=== PATIENT | male | born 1935 | race Caucasian/White ===

== ENCOUNTER 2016-07-14 13:08 | Observation (INO) | payer MEDICARE ==
[~2016-07-14] VITALS: Ht 165.1 cm; Wt 63.0 kg
[~2016-07-14 13:08] MED LIST: ASPI81TA2 PO; LOVA40TA PO; PRI20 PO
[2016-07-14 13:15] VITALS: BP 181/87; PULSE 65; RESP 16; O2SAT 100
--- NOTE | 2016-07-14 13:34 | ED.REPORT ---
HPI-Chest Pain 40 and Over Date of Service Jul 14, 2016 ED Provider: Jose Raul Temple DO 81 year old male with a history of PR, GERD, and CABG presents to the ER accompanied by his complaining of chest pain onset this morning. He also reports persistent dizziness, with an episode of near syncope yesterday, and shortness of breath. Patient denies fever, cough, lower extremity swelling, diarrhea, nausea, and vomiting. He is a poor historian, and his frequently interrupts with information that is not clinically relevant. Nursing Notes Stated Complaint: DIZZY Chief Complaint: Chest Pain Nursing Notes Reviewed: Yes Allergies: Coded Allergies: No Known Allergies (Verified , 07/14/16) Scheduled Aspirin-Expunged Drug, Do Not Renew! (Aspirin-Expunged Drug, Do Not Renew!) 81 Mg Tablet 81 MG PO DAILY Lovastatin-Expunged Drug, Do Not Renew! (Lovastatin-Expunged Drug, Do Not Renew! ) 40 Mg Tablet 40 MG PO DAILY Omeprazole-Expunged Drug, Do Not Renew! (Omeprazole-Expunged Drug, Do Not Renew! ) 20 Mg Capcr 20 MG PO BID General Time Seen by MD: 13:33 Chief Complaint Chest pain Hx Obtained From: Patient, Spouse Arrived By: Walk-in Sudden in Onset?: No Onset Occurred: 5 - 8 hours ago Symptom Duration: Since onset Location: : Substernal Quality: Painful Severity: Current: Moderate Severity: Maximum: Moderate Associated with: Reports: Dizziness, Lightheaded, Shortness of Breath, Denies: Cough, non-productive, Cough, productive, Fever, Nausea, Vomiting Pertinent Negative: Pt denies other symptoms Context Related History: Reports: GERD, Myocardial infarction Past Medical History Past Medical History PR Reports: GERD Past Surgical History Carotid endarterectomy CABG Smoking History Unknown if Ever Smoker Social History Alcohol Use: "Social" (occasional) Other Social History: Good social support, Review of Systems Constitutional: Denies: Chills, Fever Respiratory: Reports: Shortness of breath, Denies: Non-productive cough Cardiovascular: Reports: Chest pain GI: Denies: Abdominal pain, Diarrhea, Nausea, Vomiting Musculoskeletal: Denies: Extremity pain, Extremity swelling, Neck pain Complete sys rev & neg: except as marked. Physical Exam Initial Vital Signs Vital Signs (First) Date Time Temp Pulse Resp B/P Pulse Ox O2 Delivery O2 Flow Rate FiO2 07/14/16 13:15 65 16 181/87 100 Room Air 07/14/16 14:26 36.2 Initial VS: Reviewed Head / Eyes: Atraumatic, Normocephalic Neck: Supple, Non-tender, Full range of motion Extremities: Vascular intact, Neuro intact, No swelling, No tenderness Skin: Warm, Dry, No cyanosis Neurologic: Alert, Oriented, Nonfocal General/Constitutional: Awake, Alert, Well developed, Well nourished Appearance / Presentation: Positive: Frail Respiratory / Chest: Breath sounds NL, Breath sounds = bilat, No respiratory distress, No rales, No rhonchi, No wheezing Midline sternotomy scar. Cardiovascular: Heart rate NL, Regular rhythm, Heart sounds NL, No murmurs, Peripheral circulation NL, Pulses = bilaterally, No gross BP differential 2+ PT pulses Abdomen: Soft, Non-tender, No guarding, No rebound, No distention Interpretation & Diagnostics Lab Results Interpretation Result Diagram: 07/14/16 1410 Test 07/14/16 14:10 White Blood Count 5.9th/mm3 (3.8-10.1) Red Blood Count 4.93mil/mm3 (4.40-5.80) Hemoglobin 14.8g/dL (13.8-17.2) Hematocrit 43.6% (41.0-50.0) Mean Corpuscular Volume 88.4fL (81-100) Mean Corpuscular Hemoglobin 30.0pg (27.0-35.0) Mean Corpuscular Hemoglobin Concent 33.9% (32.0-37.0) Red Cell Distribution Width 13.0% (12.3-15.4) Platelet Count 210bil/L (150-400) Neutrophils (%) (Auto) 48.2% (40-74) Lymphocytes (%) (Auto) 40.5% (14-46) Monocytes (%) (Auto) 8.5% (4-12) Eosinophils (%) (Auto) 1.9% (0-5) Basophils (%) (Auto) 0.7% (0-3) D-Dimer < 0.5mg/L (<0.50) ECG Interpretation ECG Interpretation: Sinus rhythm at a rate of 64 with occasional PAC's Time: 13:33 Interpreted by: ED physician X-Ray Chest Interpretation Chest Xray Interpretation: IMPRESSION: 1. Chronic interstitial changes. 2. 9 mm right basilar nodular opacity, from nonspecific and not seen on prior exam dated 03/08/13. Recommend interval followup as below. Fleischner Society criteria for SOLID lung nodule followup. Nodule size (mm)Low-risk patientHigh-risk patient<6 (single or multiple)No routine followup.Optional CT at 12 months. 6-8 (single or multiple)CT at 6-12 months, then optional CT at 18-24 mo.CT at 6-12 months, then CT at 18-24 months. >8 (single)CT, PET-CT, or biopsy at 3 months. Same as for low-risk pts. >8 (multiple)CT at 3-6 months, then optional CT at 18-24 mo.CT at 3-6 months, then CT at 18-24 months. Recommendations do not apply to lung cancer screening, patients with immunosuppression, or patients with known primary cancer. Dictated by: Vandana Hernandez M.D. on 07/14/2016 at 14:18 Approved by: Vandana Hernandez M.D. on 07/14/2016 at 14:23 View: Portable, 1 view Interpretation / Wet Read by: Interpret - Radiologist Re-Eval/Medical Decision Med Decision/Clinical Course Chest pain which is associated with near-syncope, EKG is nonischemic-looking, currently awaiting diagnostic evaluation. Care transferred to Dr. Reeves Source of Hx: Old records Time of Eval: 14:52 Patient Status: Condition improved, Pain resolved Re-Evaluation/Progress Note: Patient is now accompanied by multiple family members. Symptoms are improved. Chest pain is resolved, and he no longer feels dizzy/lightheaded. States that he thinks that the juice helped his symptoms. Discussed lab and radiology results. Counseled Regarding: Lab results Discharge & Departure Shift Change Sign-Out Patient Care Transferred: Yes Discussed Complaint(s): Yes Primary Impression: Chest pain Discharge Condition All VS Reviewed: Yes Condition: Stable Referrals: Dylon Dao MD (PCP) Care Transferred to: Dr. Reeves Care Transferred at: 15:03 Scribe Attestation Portions of this note were transcribed by Antoni Arreguin. I, Dr. Temple, personally performed the history, physical exam and medical decision-making; I reviewed and confirmed the accuracy of the information in the transcribed note. Signed by: Brianne Hansen, 07/14/2016 and 15:03 copies to: Dylon Dao MD, Timothy S DO Jul 14, 2016 13:34 ANTONI ARREGUIN Jul 14, 2016 13:48
[2016-07-14] MEDS ORDERED: Ondansetron 2 mg/mL 2 mL Inj IVPUSH ONE (13:50)
--- NOTE | 2016-07-14 14:25 | DRSVH ---
PROCEDURE: X-RAY CHEST ONE VIEW, PORTABLE ([id number]) INDICATIONS: chest pain TECHNIQUE: One view of the chest was acquired. COMPARISON: [facility], CHEST 2VW, 03/08/2013, 5:12 PM. FINDINGS: Surgical changes and devices: Sternal wires consistent with previous bypass procedure as well as frac tured first wire are unchanged. Lungs and pleura: No pleural effusions or pneumothorax. Chronic interstitial changes are present. Ap proximate 9 mm area of nodular opacity is present within the right base, not previously visualized. Mediastinum: Mediastinal contours appear normal. Heart size is normal. Bones and chest wall: No suspicious bony lesions. Overlying soft tissues appear unremarkable. IMPRESSION: 1. Chronic interstitial changes. 2. 9 mm right basilar nodular opacity, from nonspecific and not seen on prior exam dated 03/08/13. Rec ommend interval followup as below. Fleischner Society criteria for SOLID lung nodule followup. Nodule size (mm)Low-risk patientHigh-risk patient<6 (single or multiple)No routine followup.Optional CT at 12 months. 6-8 (single or multiple)CT at 6-12 months, then optional CT at 18-24 mo.CT at 6-12 m onths, then CT at 18-24 months. >8 (single)CT, PET-CT, or biopsy at 3 months. Same as for low-risk p ts. >8 (multiple)CT at 3-6 months, then optional CT at 18-24 mo.CT at 3-6 months, then CT at 18-24 m onths. Recommendations do not apply to lung cancer screening, patients with immunosuppression, or patients w ith known primary cancer. Dictated by: Vandana Hernandez M.D. on 07/14/2016 at 14:18 Approved by: Vandana Hernandez M.D. on 07/14/2016 at 14:23
[2016-07-14 14:26] LABS: BASOPHILS % (AUTO) 0.7 % (0-3); EOSINOPHILS % (AUTO) 1.9 % (0-5); MONOCYTES % (AUTO) 8.5 % (4-12); Mean Corpuscular Volume 88.4 fL (81-100); NEUTROPHILS % (AUTO) 48.2 % (40-74); Platelet Count 210 bil/L (150-400)
[2016-07-14 15:03] LABS: Creatine Kinase 147 U/L (21-232); Magnesium 2.1 mg/dL (1.6-2.6)
[2016-07-14 15:09] LABS: TROPONIN T < 0.010 ug/L (0.0-0.011)
[2016-07-14] MEDS ORDERED: Nitroglycerin 2% 1 Gm Ointment TOPICAL SCH (17:55)
[2016-07-14 17:56] VITALS: BP 110/75; PULSE 75; RESP 16; O2SAT 96
--- NOTE | 2016-07-14 18:48 | PCM.HPMED ---
Subjective Date of Service Jul 14, 2016 Primary Provider: Admitting Physician: Primary Care Physician: Dylon Dao MD Attending Physician: Chief Complaint: Chest pain, dizziness History of Present Illness: This is a 81 years old male with past medical history coronary artery disease status post CABG approximately 10 years ago, hypertension, hypercholesterolemia, carotid artery stenosis status post endarterectomy. He presented to the emergency room today complaining about chest pain, dizziness for 2 days. He is a very poor historian and is quite nonspecific about details of his symptoms. He denies shortness of breath, but his stated he was short of breath prior arrival to emergency room. No abdominal pain, no nausea, no vomiting, no fever, no chills. Initial workup in the emergency room is negative . Given his risk factor is being being put on observation to rule out ACS Review of Systems: Comprehensive review by 12 point is negative except for chest pain and dizziness as described above in history of present illness Allergies Coded Allergies: No Known Allergies (Verified , 07/14/16) Home Medications Aspirin-Expunged Drug, Do Not Renew! (Aspirin-Expunged Drug, Do Not Renew!) 81 Mg Tablet 81 MG PO DAILY Lovastatin-Expunged Drug, Do Not Renew! (Lovastatin-Expunged Drug, Do Not Renew! ) 40 Mg Tablet 40 MG PO DAILY Omeprazole-Expunged Drug, Do Not Renew! (Omeprazole-Expunged Drug, Do Not Renew! ) 20 Mg Capcr 20 MG PO BID PMH Hypertension, coronary artery disease status post CABG, GERD Surgical History Carotid endarterectomy CABG Family History Family history is reviewed and is noncontributory to the present illness Social History Hx Alcohol Use: Yes (occ) Hx Substance Use: No Hx Tobacco Use: No Smoking Status: Unknown if Ever Smoker Exam Vital Signs Vital Sign - Last Date Time Temp Pulse Resp B/P Pulse Ox O2 Delivery O2 Flow Rate FiO2 07/14/16 17:56 75 16 110/75 96 Room Air 07/14/16 14:26 36.2 Exam Constitutional: Well-nourished male in bed comfortably, nad HEENT: Normocephalic and atraumatic. Sclerae anicteric Mouth: Oral mucosa, no oral thrush Neck: Supple, no JVD, ., Trachea is midline Chest: No chest wall deformity, normal respiratory effort Lung: Clear bilaterally, no carpal, no wheezing Heart : S1-S2 regular rate and rhythm no gallop no murmur Abdomen: Soft nontender, nondistended. Bowel sounds normal quadrant Extremity: No edema, tenderness, no cyanosis Skin: No rash no ulcers Neuro : Grossly non focal. AAO x 3 . Lab and Diagnostics Result Diagram: 07/14/16 1410 07/14/16 1410 X-Rays, CTs and MRIs Chest x-ray reviewed : 1. Chronic interstitial changes. 2. 9 mm right basilar nodular opacity, from nonspecific and not seen on prior exam dated 03/08/13. Recommend interval followup as below. Assessment & Plan 1. Chest pain 2. History of coronary artery disease status post CABG 3. For hypertension 4. GERD 5. Lung nodule ( new) : Outpatient follow up. Obtain chest CT Observation Telemetry monitoring Aspirin 81 mg orally daily. Nitroglycerin for chest pain. Morphine sulfate for chest pain not relieved by nitroglycerin Cardiac enzyme x 3. 1sts negative. EKG showed normal sinus rhythm. No ST changes. Continue statin. Obtain lipid profile and hemoglobin A1c Stress test in the morning if troponin is negative. He stated he prefers exercise stress test and brags of being very active Medications reviewed and reconciled. Consider chest CT scan and outpatient follow-up for new finding of lung nodule Short hospital stay is expected Pain Evaluation: Adequate Pain Control GI Prophylaxis: Proton Pump Inhibitor Resuscitation Status: CPR: Attempt Resuscitation Time spent 55 minutes Mendoza Mota MD Jul 14, 2016 18:48
[2016-07-14] MEDS ORDERED: LIP40 PO (19:16)
[2016-07-14] MEDS ORDERED: ASPI81TA3 PO (19:16)
[2016-07-14] MEDS ORDERED: OMEP20CA11 PO (19:17)
[2016-07-14] MEDS ORDERED: CLOP75TA28 PO (19:26)
[2016-07-14] MEDS ORDERED: ASPI325T32 PO (19:27)
--- NOTE | 2016-07-14 20:03 | NUR ---
Med Rec Pt is unsure when he stopped his plavix. He started it with his carotid surgery in September. will bring in the RX bottle in the AM
[2016-07-14 20:10] LABS: APPEARANCE,URINE CLEAR (CLEAR,HAZY); COLOR,URINE STRAW (YELLOW); OCCULT BLOOD,URINE NEGATIVE (NEGATIVE); UROBILINOGEN,URINE NORMAL (NORMAL)
[2016-07-14 21:06] VITALS: BP 117/62; PULSE 87; RESP 18; O2SAT 96
--- NOTE | 2016-07-14 21:12 | NUR ---
Admission note Pt admitted for chest pain and feeling like "I was going to pass out" He denies symptoms at present time. Chest pain free. NTP to upper chest. Reviewed fall precautions. Aware that he is NPO after MN. Will cont to monitor
--- NOTE | 2016-07-14 21:58 | DRSVH ---
PROCEDURE: CT CHEST WITHOUT CONTRAST ([id number]) INDICATIONS: Lung nodule TECHNIQUE: Noncontrast 5 mm thick sections acquired from the pulmonary apices to the posterior costophrenic angl es. 7 mm thick coronal and sagittal MIP reformats were then acquired. A low radiation dose techniqu e was utilized. COMPARISON: [facility], CR, XR CHEST 1VW (PORTABLE), 07/14/2016, 13:49. FINDINGS: Image quality: Diagnostic, given the low radiation dose technique. Lungs and pleura: Lungs are clear of infiltrates masses or effusions. Pulmonary vasculature is normal . Mediastinum: Heart size is normal. Prominent atherosclerotic calcification of the coronary arteries is present. No pericardial effusion. No mediastinal adenopathy by size criteria. Thoracic aorta an d central pulmonary arteries are normal in size. Esophagus is normal in caliber. No hiatal hernia. Bones and chest wall: No suspicious bony lesions. No vertebral body compression fractures. No axil walker or supraclavicular adenopathy by size criteria. Abdomen: Visualized upper abdomen solid organs and bowel loops appear normal in the absence of contr ast. IMPRESSION: Nodule is not seen in the lungs. Density on chest x-ray is likely to be nipple shadow. Th is can be tested by putting a marker on the nipple and obtaining an upright portable chest. Dictated by: Maikel Edouard M.D. on 07/14/2016 at 21:54 Approved by: Maikel Edouard M.D. on 07/14/2016 at 21:57
[2016-07-15] VITALS (8 sets, daily range): BP systolic 88–119; BP diastolic 60–75; PULSE 56–71; RESP 16–20; O2SAT 95–99
--- NOTE | 2016-07-15 00:56 | NUR ---
Cont pulse oximetry Pt scored high on sleep apnea scale. Given cont pulse oximetry Will monitor
--- NOTE | 2016-07-15 01:06 | NUR ---
Low BP Pt's blood pressure is 88/60 manually. He states that he "feels fine". He is currently supine in his bed. Plan to recheck in one hour as I wiped the NTP off at 0030 tonight. Pt understands not to get up OOB without help.
[2016-07-15] MEDS ORDERED: Pantoprazole 40 mg ER24 Tablet PO SCH (07:30)
--- NOTE | 2016-07-15 11:38 | NUR ---
RETURN FROM STRESS TEST Patient back from cardiac stress test at 1100, eating lunch, denies chest pain, telemetry applied. waiting for results. Addendum: 07/15/16 at 1436 by ANJELICA MCDONALD RN LABS-A1c 6.1 NEURO- Forgetful [facility] SR kike PLUM-RA GI-Heart Healthy -Urinal SKIN-WNL IV-S/L PLAN- D/C if this am stress test negative.
--- NOTE | 2016-07-15 13:49 | NUR ---
Social Work: Initial Assessment / Readiness for d/c Data: Pt is a 81 y/o male admitted for chest pain. Pt's PCP is Dr Dao, pt's insurance is [employer]. EMR reviewed. Readmit score not listed. Pt discussed in rounds, MD states pt likely to d/c either today or tomorrow. AGRICULTURAL EQUIPMENT TEST ENGINEER met with pt and spouse at bedside, role explained. Pt sates that he lives in a 3 story home with his spouse where he uses no DME. Pt has no hx with HH or SNF, no LTC or VA benefits, pt is not a caregiver. Pt does not have DPOA/AD, declined info. No further d/c planning needs identified at this time. AGRICULTURAL EQUIPMENT TEST ENGINEER will continue to follow if needs arise. Assessment: Pt who is independent at baseline. Plan: Pt will d/c home via POV when medically stable, likely today or tomorrow per MD. No further d/c planning needs identified at this time. AGRICULTURAL EQUIPMENT TEST ENGINEER will continue to follow if needs arise. ANGELICA Morgan Addendum: 07/15/16 at 1352 by CHUCKIE ANDERSON Amended: Links added.
--- NOTE | 2016-07-15 17:05 | PCM.DIMED ---
Discharge Instructions Date of Service Jul 15, 2016 Dates of Hospitalization Jul 14, 2016 at 19:08 Discharge Diagnosis Discharge Diagnosis Primary diagnosis Acute Chest pain, non cardiac likely GERD Secondary diagnosis Coronary artery disease status post CABG Hypertension GERD Diet Heart Healthy Activity No restrictions Call your provider Chest pain, Vomitting Patient Instructions 'Your heart tests showed no heart attack Suspect this is related to Reflux since you ran out of Omeprazole (ulcer medications) Follow-up Provider: Dylon Dao MD Follow-up with PCP in: 1 week Stevenson Doherty MD Jul 15, 2016 17:05
[2016-07-15] MEDS ORDERED: OMEP20CA11 PO (17:07)
--- NOTE | 2016-07-15 17:11 | PCM.DC.MED ---
Discharge Summary Date of Service Jul 15, 2016 Dates of Hospitalization Date of Hospital Admission Jul 14, 2016 at 19:08 Date of Discharge: Jul 15, 2016 Providers: Admitting Physician: Mendoza Mota MD Primary Care Physician: Dylon Dao MD Attending Physician: Mendoza Mota MD Diagnosis at Time of Discharge Diagnosis at Time of Discharge Primary diagnosis Acute Chest pain, non cardiac likely GERD Secondary diagnosis Coronary artery disease status post CABG Hypertension GERD Consultations None Procedures XRay, CTs & MRIs Chest x-ray reviewed : 1. Chronic interstitial changes. 2. 9 mm right basilar nodular opacity, from nonspecific and not seen on prior exam dated 03/08/13. Recommend interval followup as below. Brief History This is a 81 years old male with past medical history coronary artery disease status post CABG approximately 10 years ago, hypertension, hypercholesterolemia, carotid artery stenosis status post endarterectomy. He presented to the emergency room today complaining about chest pain, dizziness for 2 days. He is a very poor historian and is quite nonspecific about details of his symptoms. He denies shortness of breath, but his stated he was short of breath prior arrival to emergency room. No abdominal pain, no nausea, no vomiting, no fever, no chills. Initial workup in the emergency room is negative . Given his risk factor is being being put on observation to rule out ACS Hospital Course Chest pain. Resolved - with history of CAD s/p CABG Unstable angina suspected - Troponin all negative - Exercise and MIBI both normal - suspect GERD as cause since patient ran out of his Omeprazole prescription recently - discharge today with Omeprazole prescription Exam Vital Signs (Last) Date Time Temp Pulse Resp B/P Pulse Ox O2 Delivery O2 Flow Rate FiO2 07/15/16 17:00 36.7 65 16 109/70 97 Room Air Exam Heart normal rhythm, no murmur Abd soft and non tender Test 07/14/16 14:10 07/14/16 17:35 07/14/16 19:55 07/15/16 00:05 White Blood Count 5.9th/mm3 (3.8-10.1) Red Blood Count 4.93mil/mm3 (4.40-5.80) Hemoglobin 14.8g/dL (13.8-17.2) Hematocrit 43.6% (41.0-50.0) Mean Corpuscular Volume 88.4fL (81-100) Mean Corpuscular Hemoglobin 30.0pg (27.0-35.0) Mean Corpuscular Hemoglobin Concent 33.9% (32.0-37.0) Red Cell Distribution Width 13.0% (12.3-15.4) Platelet Count 210bil/L (150-400) Neutrophils (%) (Auto) 48.2% (40-74) Lymphocytes (%) (Auto) 40.5% (14-46) Monocytes (%) (Auto) 8.5% (4-12) Eosinophils (%) (Auto) 1.9% (0-5) Basophils (%) (Auto) 0.7% (0-3) D-Dimer < 0.5mg/L (<0.50) Sodium Level 141mEq/L (134-144) Potassium Level 3.9mEq/L (3.5-5.2) Chloride Level 102mEq/L (97-108) Carbon Dioxide Level 21mmol/L (18-29) Blood Urea Nitrogen 16mg/dL (8-27) Creatinine 1.03mg/dL (0.76-1.27) Estimat Glomerular Filtration Rate 74mL/min (>59) Glucose Level 108mg/dL (60-99) Hemoglobin A1c 6.1% (4.8-5.6) Calcium Level 9.5mg/dL (8.5-10.1) Magnesium Level 2.1mg/dL (1.6-2.6) Total Bilirubin 0.8mg/dL (0.0-1.2) Aspartate Amino Transf (AST/SGOT) 26U/L (0-50) Alanine Aminotransferase (ALT/SGPT) 21U/L (0-44) Alkaline Phosphatase 105U/L (25-160) Total Creatine Kinase 147U/L (21-232) Creatine Kinase MB 4.0ng/mL (0.0-10.4) Creatine Kinase MB % % (0.0-5.0) Pro-B-Type Natriuretic Peptide 196.0pg/mL (0-486) Total Protein 7.4g/dL (6.4-8.4) Albumin 4.7g/dL (3.4-5.0) Hold Urine Received (Received) Urine Color Straw (YELLOW) Urine Appearance Clear (CLEAR,HAZY) Urine pH 7.0 (5.0-8.0) Urine Specific [place] 1.005 (1.003-1.035) Urine Protein Negativemg/dL (NEG,TRACE) Urine Glucose (UA) Negativemg/dL (NEGATIVE) Urine Ketones Negativemg/dL (NEGATIVE) Urine Occult Blood Negative (NEGATIVE) Urine Nitrite Negative (NEGATIVE) Urine Bilirubin Negative (NEGATIVE) Urine Urobilinogen Normalmg/dL (NORMAL) Urine Leukocyte Esterase Negative (NEGATIVE) Urine RBC 0-2/hpf (0-2) Urine WBC 0-5/hpf (0-5) Urine Epithelial Cells None/hpf (NONE-MOD) Urine Crystals None seen (NONE SEEN) Urine Bacteria None/hpf (NONE-FEW) Urine Hyaline Casts None/lpf (NONE) Urine Granular Casts None seen (NONE SEEN) Urine Waxy Casts None seen (NONE SEEN) Urine Red Blood Cell Casts None seen (NONE SEEN) Urine White Blood Cell Casts None seen (NONE SEEN) Urine Mucus None seen (None Seen) Urine Trichomonas None seen (NONE SEEN) Urine Yeast None (NONE SEEN) Urinalysis Comment None Urine Culture Reflexed Not indicated Troponin T < 0.010ug/L (0.0-0.011) Test 07/15/16 06:10 Triglycerides Level 82mg/dL (0-149) Cholesterol Level 118mg/dL (100-199) LDL Cholesterol, Calculated 47.600mg/dL (0-99) VLDL Cholesterol 16.400mg/dL HDL Cholesterol 54mg/dL (>39) Cholesterol/HDL Ratio 2.19 (0.0-4.4) Discharge Medications Discharge Medications Aspirin (Aspirin) 325 Mg Tablet 162 MG PO DAILY (Reported) Atorvastatin (Lipitor) 40 Mg Tablet 40 MG PO HS (Reported) Omeprazole (Omeprazole) 20 Mg Capsule. 20 MG PO QAM Prescribed by: HODA DOHERTY MD Followup Plan Disposition: Home Discharge Diet: Heart Healthy Discharge Activity: No restrictions Patient Instructions 'Your heart tests showed no heart attack Suspect this is related to Reflux since you ran out of Omeprazole (ulcer medications) Follow-up Provider: Dylon Dao MD Follow-up with PCP in: 1 week Time spent 18 minutes spend Hoda Doherty MD Jul 15, 2016 17:10
--- NOTE | 2016-07-15 18:08 | NUR ---
Case Management: SIERRA provided and explained. Signed copy in chart, photocopy to patient. [id number].
--- NOTE | 2016-07-15 18:10 | NUR ---
DISCHARGE Patient discharged at 1810, left with family who will drive him home. Patient denies pain, nausea, and shortness of breath. IV catheter removed intact, home medications reviewed and patient verbalized understanding. New Rx provided for Omeprazole and care notes given. Follow up instructions gone over with patient and questions answered.
--- NOTE | 2016-07-15 18:16 | DRSVH ---
PROCEDURE: ONE DAY TREADMILL STRESS TEST. Rest and exercise myocardial perfusion SPECT with gated i maging and ejection fraction RADIOPHARMACEUTICAL: 8.3 mCi of Tc-99m tetrofosmin IV at rest and 25.6 mCi of Tc-99m tetrofosmin IV at peak exercise. Htd-rxo-xhmjuyaj was performed. INDICATIONS: Chest pain. TECHNIQUE: Radiopharmaceutical was injected at peak stress test, and also at rest. SPECT images wer e obtained. SPECT myocardial perfusion images were displayed in short axis, horizontal long axis, an d vertical long axis views. Gated images were reviewed using ScaleXtreme[employer] software. COMPARISON: None. CARDIAC STRESS: A standard Samson treadmill exercise tolerance test was performed by the patient unde r the supervision of the attending staff. The patient exercised for 9 minutes and 23 seconds; functi onal aerobic impairment (TWYLA) is -65%. Hemodynamic Data: There is normal blood pressure and heart rate response to exercise stress. The pa tient achieved 104% of maximum predicted heart rate at peak exercise. Symptoms: The patient had some baseline resting chest pain, which resolved during exercise. EKG: No diagnostic EKG changes of ischemia. The patient had intermittent PACs and some occasional P VCs. No significant sustained arrhythmias seen. FINDINGS: Raw Data: There appears to be adequate myocardial uptake. Left Ventricular Function: Gated images demonstrate normal left ventricle wall thickening. No segme ntal wall motion abnormality. No transient ischemic dilation on visual inspection. The left ventric le resting end-diastolic volume is 62 mL. Left ventricle stress ejection fraction is 88%; normal danii ues are above 45%. Myocardial Perfusion: There was normal myocardial perfusion. IMPRESSION: This is a normal myocardial perfusion study. The patient has excellent exercise toleran ce. He walked on Samson protocol for 9 minutes and 23 seconds. His functional aerobic impairment is -65%. No obvious ischemic electrocardiogram changes. Left ventricular function is preserved. Overa ll this is a low-risk myocardial perfusion scan. Dictated by: Russ Jimenez M.D. on 07/15/2016 at 16:57 Transcribed by: MARILYN on 07/15/2016 at 21:16 Approved by: Russ Jimenez M.D. on 07/18/2016 at 11:06
== END 2016-07-15 18:25 | disposition home or self-care (01) ==
LOC: SED 13:08 → MPC 19:08
PROVIDERS: ADMIT Internal Medicine; ATTEND Internal Medicine
DX: R07.89 Other chest pain (principal); R42 Dizziness and giddiness; I25.10 Atherosclerotic heart disease of native coronary artery without angina pectoris; I10 Essential (primary) hypertension; E78.00 Pure hypercholesterolemia, unspecified; R06.02 Shortness of breath; K21.9 Gastro-esophageal reflux disease without esophagitis; R91.8 Other nonspecific abnormal finding of lung field; Z95.1 Presence of aortocoronary bypass graft; Z79.82 Long term (current) use of aspirin; Z79.899 Other long term (current) drug therapy
CPT/HCPCS: 36415; 71010; 71250; 78452; 80053; 80061; 81000; 82550; 82553; 82948; 83036; 83735; 83880; 84484; 85025; 85379; 93005; 93017; 99285; A9502; G0378

== ENCOUNTER 2016-08-04 07:07 | Day surgery (SDC) | payer MEDICARE ==
[~2016-08-04] VITALS: Ht 167.6 cm; Wt 51.8 kg
[~2016-08-04 07:07] MED LIST changes: +ASPI325T32 PO; -ASPI81TA2 PO; +LIP40 PO; -LOVA40TA PO; +OMEP20CA11 PO; -PRI20 PO
[2016-08-04 07:24] VITALS: BP 132/75; PULSE 50; RESP 12; O2SAT 99
[2016-08-04] MEDS ORDERED: 0.9% Sodium Chloride 1,000 ML IV PRN (07:38)
[2016-08-04] MEDS ORDERED: fentaNYL-PF 50 mCg/mL 2 mL Inj IVPUSH PRN (07:40)
[2016-08-04] MEDS ORDERED: Sodium Chloride LOK Flush 10 mL Syringe IV PRN (07:40)
[2016-08-04 08:11] VITALS: BP 90/58; PULSE 53; RESP 16; O2SAT 95
[2016-08-04 08:21] VITALS: BP 93/60; PULSE 49; RESP 16; O2SAT 96
[2016-08-04 08:31] VITALS: BP 97/63; PULSE 48; RESP 16; O2SAT 99
[2016-08-04 08:41] VITALS: BP 99/49; PULSE 49; RESP 16; O2SAT 96
--- NOTE | 2016-08-04 09:43 | ENDO ---
[address] [address] ENDOSCOPY PROCEDURE PATIENT: KRISTIE ESCALONA : 1935 MR#: [id number] ADMIT: 08/04/2016 JOB ID: [id number] DATE: 08/04/2016 TYPE OF OPERATION: Esophagogastroduodenoscopy with biopsy. PREOPERATIVE DIAGNOSIS(ES): History of Vu esophagus. POSTOPERATIVE DIAGNOSIS(ES): 1. Status post Vilma fundoplication. 2. Mild nonerosive gastritis. 3. Irregular Z-line consistent with Vu esophagus seen from 38-35 cm from incisors status post four quadrant biopsies. ANESTHESIA: 1. Fentanyl 75 mcg. 2. Versed 3 mg IV administered. COMPLICATIONS: None. BLOOD LOSS: Minimal. DESCRIPTION OF PROCEDURE: After risks and benefits were explained to the patient, informed consent was obtained. After anesthesia administered, an upper endoscope was then inserted into the mouth, intubated through esophagus, stomach, second portion of duodenum. Mucosa carefully examined. After the procedure was done, the scope was withdrawn and the procedure terminated. FINDINGS: Upon inspection of the esophagus, there was irregular Z-line consistent with history of Vu esophagus from 38-35 cm from the incisors. Four quadrant biopsies were the used to biopsy this area. Z-line located at 38 cm from the incisors. Upon entering the stomach, there was mild nonerosive gastritis. On retroflexion was status post Vilma fundoplication. Duodenal bulb, first and second portion were normal. Biopsies taken as I mentioned before in the distal esophagus. IMPRESSIONS: 1. Status post Vilma fundoplication. 2. Mild nonerosive gastritis. 3. Irregular Z-line consistent with Vu esophagus seen from 38-35 cm from incisors status post four quadrant biopsies. RECOMMENDATIONS: 1. Await pathology results. 2. If no dysplasia was seen, then repeat EGD in three years. 3. Continue proton pump inhibitor as an outpatient.
--- NOTE | 2016-08-05 11:03 | PATH ---
SURGICAL PATHOLOGY Attending Physician:Mendoza Vela MD CASE STATUS: Signed Out PATIENT NAME: KRISTIE ESCALONA PID: [id number] : 1935 DATE COLLECTED:08/04/2016 17:10 SPECIMEN: Esophagus, Biopsy CLINICAL HISTORY: 1). DISTAL ESOPHAGUS BIOPSY FINAL DIAGNOSIS: Distal Esophagus Biopsy: Fragments of squamous mucosa and gastric cardia-type mucosa positive for specialized metaplasia of Vu's type esophagus. Negative for dysplasia and malignancy. Eosinophils are not increased. ICD10 K22.70 GROSS DESCRIPTION: The specimen is received in one formalin filled container labeled with the patient's name, sublabeled "distal esophagus" and consists of 2 portions of tissue which aggregate to 0.2 x 0.2 x 0.2 CM. The specimen is entirely submitted in one cassette. 08/04/2016 [facility] ICD-9 CODES: CPT CODES: 1: 67041 Electronically Signed Out Chucky Guzman MD [facility]ology [facility] [address], [place] [address] Technical component performed at [facility], [facility] [address], [place], [address]
== END 2016-08-04 23:59 | disposition home or self-care (01) ==
LOC: END 07:07
PROVIDERS: ATTEND Internal Medicine Gastroenterology
DX: K22.70 Barrett's esophagus without dysplasia (principal); K29.60 Other gastritis without bleeding; I25.10 Atherosclerotic heart disease of native coronary artery without angina pectoris; I48.91 Unspecified atrial fibrillation; E78.00 Pure hypercholesterolemia, unspecified; K21.9 Gastro-esophageal reflux disease without esophagitis; E78.5 Hyperlipidemia, unspecified; Z95.1 Presence of aortocoronary bypass graft; Z79.82 Long term (current) use of aspirin